=== PATIENT | male | born 1960 | race Caucasian/White ===

== ENCOUNTER → 2018-06-28 10:43 | Outpatient (CLI) | payer MEDICARE, BC ==
[~2018-06-28 10:43] MED LIST: CARAFATE1 G PO; PROTONIX40 MG PO; SYNTHROID75 MCG PO
== END | disposition home or self-care (01) ==
LOC: D.US 10:43 → EDSEX 10:43 → D.US 11:00
DX: R19.4 Change in bowel habit (principal)

== ENCOUNTER 2018-07-05 12:51 | Observation (INO) | payer MEDICARE ==
[~2018-07-05] VITALS: Ht 185.4 cm; Wt 93.0 kg
--- NOTE | ~2018-07-05 | HEMODYNAMI ---
PATIENT:JACLYN DAMON MEDICAL RECORD: [id number] : 60 LOCATION:[facility] D.2119 ADMISSION DATE: 07/05/18 Generatedon:07/06/201813:58 Patient name: JACLYN DAMON Patient #: [id number] SSN: DO B: 1960 Date of study: 07/06/2018 Page: Of Hemodynamic Procedure Report Patient Data Patient Demographics Procedure consent was obtained First Name: JACLYN Gender: Male Last Name: MARISOL : 1960 [facility] Initial: JOSE Age: 58 year(s) Patient #: [id number] Race: Unknown Additional ID: [id number] Contact details [address]: [address] [place] [address] State: [place] City: [place] Zip code: [address] Past Medical History Allergies: No known allergies Admission Admission Data Admission Date: 07/05/2018 Admission Time: 16:07 Room #: D.2119 Lab Results Lab Result Date: 07/06/2018 Lab Result Time: 0:00 Biochemistry Name Units Result Min Max BUN mg/dl 21 --(----)-* 7 18 Creatinine mg/dl 1.1 --(--*-)-- 0.6 1.3 CBC Name Units Result Min Max Hemoglobin g/dl 12.4 *-(----)-- 13.5 17.5 Procedure Procedure Types Cath Procedure Diagnostic Procedure C [facility] w/Coronaries Procedure Description Procedure Date Procedure Date: 07/06/2018 Procedure Start Time: 13:44 Procedure End Time: 13:51 Procedure Staff Name Function German Conteh MD Performing Physician Etta Delong RT Monitor Jaya Dubois RN Nurse Raquel Abreu RT Scrub Procedure Data Cath Procedure Fluoroscopy Diagnostic fluoroscopy Total fluoroscopy dose: 222 dose: 222 mGy mGy Contrast Material Contrast Material Type Amount (ml) Isovue 300 50 Entry Location Entry Primary Successful Side Size Upsize Upsize Entry Closure Succes sful Closure Location (Fr) 1 (Fr) 2 (Fr) Remarks Device Remarks Femoral Right 5 Fr Exoseal artery Estimated blood loss: 10 ml Diagnostic catheters Device Type Used For End Catheter Placement MULTIPACK JL 4.0 5Fr Procedure catheter MULTIPACK 3DRC 5Fr Procedure catheter MULTIPACK Pigtail 5 Fr Procedure catheter Procedure Complications No complications Procedure Medications Medication Administration Route Dosage Oxygen etCO2 Nasal cannula 2 l/min Lidocaine 2% added to field 20 Heparin Flush Bag added to field 2 bags (1000units/500ml NS) 0.9% NaCl I.V. 100 ml/hr Versed I.V. 2 mg Fentanyl I.V. 100 mcg Versed I.V. 1 mg Fentanyl I.V. 50 mcg Hemodynamics Rest HGB: 12.4 (g/dl) Heart Rate: 68 (bpm) Pressure Samples Time Site Value (mmHg) Purpose Heart Use Rate(bpm) 13:48 LV 117/-14,11 Snapshot 71 13:48 LV 116/-14,9 Snapshot 70 Gradients Valve Time Site Site Mean SEP/DFP Peak To Heart Use 1 2 (mmHg) (sec/min) Peak Rate (mmHg) (bpm) Aortic 13:49 LV AO 69 Snapshots Pre Cath Intra NCS Post Cath Vital Signs Time Heart Resp SPO2 etCO2 NIBP Rhythm Pain Sedation Rate (ipm) (%) (mmHg) (mmHg) Status Level (bpm) 13:32:55 67 16 98 39.8 128/75(95) NSR 0 (11) 10(A) , No pain 13:37:09 65 18 100 42.9 121/65(84) NSR 0 (11) 10(A) , No pain 13:41:21 67 15 98 0 116/63(81) NSR 0 (11) 10(A) , No pain 13:45:28 63 14 97 0 110/68(82) NSR 0 (11) 9(A) , No pain 13:49:34 74 16 98 43.7 117/66(91) NSR 0 (11) 9(A) , No pain 13:54:36 68 15 98 36.9 116/65(85) NSR 0 (11) 10(A) , No pain Medications Time Medication Route Dose Verified Delivered Reason Notes Eff ectiveness by by 13:34:20 Oxygen etCO2 2 German Jaya used for Nasal l/min St Antwan Dubois RN procedure cannula 13:34:26 Lidocaine 2% added 20ml German Porter for local to vial [facility] Antwan Conteh anesthetic field MD [place] 13:34:32 Heparin Flush added 2 German Porter used for Bag to bags St Antwan Conteh procedure (1000units/500ml field MD [place] NS) 13:34:40 0.9% NaCl I.V. 100 [place] Per ml/hr St Antwan Dubois RN physician 13:43:27 Versed I.V. [address] [place] [address] [facility] Antwan Dubois RN sedation 13:43:32 Fentanyl I.V. 100 [place] [facility] [place]twan Dubois RN sedation 13:47:12 Versed I.V. [address] [place] [address] Antwan Dubois RN sedation 13:47:16 Fentanyl I.V. 50 [place] [facility] [place] Antwan Dubois RN sedation Procedure Log Time Note 13:13:27 Time tracking: Call back (After hours or weekends) 13:13:30 Plan of Care:Hemodynamics will remain stable., Cardiac rhythm will remain stable., Comfort level will be maintained., Respiratory function will remain adequate., Patient/ family verbilizes understanding of procedure., Procedure tolerated without complication., Recovers from procedure without complications.. 13:15:02 Jaya Dubois RN sent for patient. Start room use. 13:26:12 Patient received from PCU to [facility] 2 Alert and oriented. Tansferred to table in Supine position. 13:26:13 Warm blankets applied, and juan diego hugger turned on for patient comfort. 13:26:14 Correct patient and procedure confirmed by team. 13:26:15 Signed procedure consent form obtained from patient. 13:26:16 ECG and BP/O2 sat monitors applied to patient. 13:26:17 Full Disclosure recording started 13:31:44 Vital chart was started 13:34:20 Oxygen 2 l/min etCO2 Nasal cannula was administered by Jaya Dubois RN; used for procedure; 13:34:26 Lidocaine 2% 20ml vial added to field was administered by German Conteh MD; for local anesthetic; 13:34:32 Heparin Flush Bag (1000units/500ml NS) 2 bags added to field was administered by German Conteh MD; used for procedure; 13:34:40 0.9% NaCl 100 ml/hr I.V. was administered by Buffie Dubois RN; Per physician; 13:34:50 Baseline sample Acquired. 13:34:55 Rhythm: sinus rhythm 13:35:03 H&P Date Dictated: 07/05/2018 Within 30 days and on chart.. 13:35:12 Pre-procedure instructions explained to patient. 13:35:14 Family in waiting room. 13:35:18 Patient NPO since Midnight. 13:35:28 Patient allergic to No known allergies 13:35:30 Is the patient allergic to Iodine/contrast media? No. 13:35:36 Was the patient premedicated? Yes 13:35:39 Is patient on blood thinner?No 13:35:41 Patient diabetic? No. 13:35:46 Snore? Yes 13:35:48 Sleep apnea? No 13:35:53 Dentures? No ? 13:36:06 IV patent on arrival in left forearm with 0.9% NaCl at [facility]. 13:36:10 Lab results completed and on chart. 13:36:14 Right groin area was prepped with chlora-prep and draped in sterile fashion 13:36:16 Alarms reviewed by R. N. 13:36:16 Sharps counted by scrub and verified by R.N. 13:37:30 Physician paged 13:42:29 Lab Result : BUN 21 mg/dl 13:42:29 Lab Result : Creatinine 1.1 mg/dl 13:42:29 Lab Result : Hemoglobin 12.4 g/dl 13:42:33 Physician arrived 13:42:34 --------ALL STOP TIME OUT------ 13:42:35 Final Timeout: patient, procedure, and site verified with staff and physician. All members of the team are in agreement. 13:42:39 Right groin site verified by team. 13:42:45 Fire Safety Assessment: A--An alcohol-based skin anteseptic being used preoperatively., C--Open oxygen or nitrous oxide is being used. 13:42:49 Physical assessment completed. ASA score P 2 - A patient with mild systemic disease as per German Conteh MD. 13:42:54 Sedation plan: IV Moderate Sedation Medication:Versed, Fentanyl 13:42:59 Use device set Femoral Dx 13:43:27 Versed 2 mg I.V. was administered by Jaya Dubois RN; for sedation; 13:43:32 Fentanyl 100 mcg I.V. was administered by Jaya Dubois RN; for sedation; 13:43:54 Zero performed for pressure channel P1 13:44:01 Procedure started. 13:44:19 Local anesthetic to right femoral artery with Lidocaine 2% by German Conteh MD.INITIAL ACCESS ONLY 13:44:28 A 5 Fr sheath was inserted into the Right Femoral artery 13:44:59 ACIST Syringe (10099) opened to sterile field. 13:44:59 Bag Decanter (2002S) opened to sterile field. 13:45:00 Medline Cath Pack ([id number]) opened to sterile field. 13:45:01 DIAGNOSTIC WIRE .035 260cm J wire (337287) opened to sterile field. 13:45:01 ACIST Hand Control (80269) opened to sterile field. 13:45:02 ACIST Manifold (28636) opened to sterile field. 13:45:03 DIAGNOSTIC Multipack 5Fr catheter set (ML7746) opened to sterile field. 13:45:03 Tegaderm 4 x 4 (1626W) opened to sterile field. 13:45:05 SHEATH 5FR [place] (GON269) opened to sterile field. 13:45:11 A MULTIPACK JL 4.0 5Fr catheter was advanced over the wire and used for Procedure. 13:45:15 LCA angiography performed. 13:46:21 Catheter removed. 13:46:30 A MULTIPACK 3DRC 5Fr catheter was advanced over the wire and used for Procedure. 13:47:08 RCA angiography performed. 13:47:10 Catheter removed. 13:47:12 Versed 1 mg I.V. was administered by Jaya Dubois RN; for sedation; 13:47:16 Fentanyl 50 mcg I.V. was administered by Jaya Dubois RN; for sedation; 13:47:17 A MULTIPACK Pigtail 5 Fr catheter was advanced over the wire and used for Procedure. 13:47:20 EXOSEAL 5Fr (EX500) opened to sterile field. 13:47:28 LV angiography performed. 13:49:10 EF : 55 % 13:49:49 Catheter removed. 13:50:05 Sheath removed intact; hemostasis achieved with Exoseal to the Right Femoral artery. 13:50:07 Procedure ended.(Physican Out) 13:50:22 Fluoroscopy dose: 222 mGy 13:50:22 Flurop Dose total: 222 13:50:25 Contrast amount:Isovue 300 50ml. 13:50:29 Sharps counted by scrub and verified by R.N. 13:50:31 Insertion/operative site no bleeding no hematoma. 13:50:35 Post right femoral artery:stable 13:50:38 Post Procedure Pulses reassessed and unchanged 13:50:43 Post procedure rhythm: unchanged. 13:50:46 Estimated blood loss: 10 ml 13:50:49 Post procedure instruction explained to patient.Patient verbalizes understanding. 13:50:58 Procedure and supply charges have been captured, reviewed, submitted and are correct. 13:51:16 Procedure Complication : No complications 13:51:28 Vital chart was stopped 13:51:33 See physician's report for complete and final results. 13:51:39 Report given to [facility] II. 13:51:43 Patient transfered to [facility] with Bed. 13:51:45 Procedure ended. 13:51:45 Full Disclosure recording stopped 13:51:48 End room use (Document Last) Device Usage Item Name Manufacture Quantity Catalog Hospital Part Current Minimal L ot# / Number Charge Number Stock Stock Serial# Code ACIST Acist 1 66319 139297 062941 236446 20 Syringe Medical (58149) Systems Inc Bag Microtek 1 2001S 860941 97023 227775 5 Decanter Medical Inc. () Medline Medline 1 [id number] 240720 88013 231156 5 Cath Pack ([id number]) DIAGNOSTIC St Chuck 1 869241 250446 929117 990248 30 WIRE .035 260cm J wire (412800) ACIST Hand Acist 1 30817 371585 506559 407152 5 Control Medical (33932) Systems Inc ACIST Acist 1 14039 800981 491015 687699 5 Manifold Medical (76747) Systems Inc DIAGNOSTIC Cardinal 1 HI6447 570262 34476 296715 30 Multipack Health 5Fr catheter set (UP7148) Tegaderm 4 3M 1 1626W 573581 419617 940095 5 x 4 (1626W) SHEATH 5FR Terumo 1 JBD736 397795 761977 275591 5 [place] (LQV571) MULTIPACK Cardinal 1 167275 5 JL 4.0 5Fr Health catheter MULTIPACK Cardinal 1 675325 5 3DRC 5Fr Health catheter MULTIPACK Cardinal 1 752652 5 Pigtail 5 Health Fr catheter EXOSEAL 5Fr Cardinal 1 EX500 762460 916017 429438 10 (EX500) Health Signature Audit Snyder Stage Time Signature Unsigned Intra-Procedure 07/06/2018 Etta Delong 1:58:29 PM RT(R) Signatures Monitor : Etta Delong Signature : RT Date : Time : [id number] [place] [address]
[2018-07-05 13:52] LABS: HEMATOCRIT 40.7 % (42.0-54.0); HEMOGLOBIN 13.9 g/dL (13.5-17.5); LYMPHOCYTES 26.5 % (15-50); MCH 32.5 pg (26.0-34.0); MCHC 34.2 g/dL (31.0-37.0); MCV 95.1 fL (80.0-100.0); MEAN PLATELET VOLUME 10.3 fL (7.4-10.4); NEUTROPHILS 59.8 % (40-80); PLATELET COUNT 197 10x3/uL (130-400); RBC 4.28 10x6/uL (4.20-6.10); RDW 13.7 % (11.5-14.5); WBC 4.3 10x3/uL (4.8-10.8)
[2018-07-05 13:54] LABS: INR 1.25 (0.85-1.17); PROTIME 15.2 SECONDS (11.6-15.0)
[2018-07-05 13:55] LABS: ALBUMIN 3.9 g/dL (3.4-5.0); ALKALINE PHOSPHATASE 48 U/L (46-116); ALT (SGPT) 29 U/L (10-68); BILIRUBIN - TOTAL 0.27 mg/dL (0.2-1.3); CALC OSMOLALITY 282 mosm/kg (275-300); CALCIUM 8.8 mg/dL (8.5-10.1); CARBON DIOXIDE 27.4 mmol/L (21.0-32.0); CHLORIDE - SERUM 104 mmol/L (98-107); CREATININE - SERUM 0.9 mg/dL (0.6-1.3); GLUCOSE 90 mg/dL (74-106); POTASSIUM - SERUM 4.3 mmol/L (3.5-5.1); PROTEIN - SERUM 7.4 g/dL (6.4-8.2); SODIUM 141 mmol/L (136-145); UREA NITROGEN 17 mg/dL (7-18); eGFR NON AFRICAN AMERICAN > 90 mL/min (90-120)
[2018-07-05 14:05] LABS: CKMB 1.4 U/L (0.0-3.6); CREATINE KINASE 155 UL (21-232); MAGNESIUM - SERUM 2.4 mg/dL (1.8-2.4); TROPONIN-I < 0.017 ng/mL (0.000-0.060)
[2018-07-05 16:39] LABS: CREATINE KINASE 128 UL (21-232)
[2018-07-05 16:42] LABS: TROPONIN-I < 0.017 ng/mL (0.000-0.060)
--- NOTE | 2018-07-05 17:41 | NUR ---
PT ARRIVED TO FLOOR VIA WC. PT IS ALERT AND ORIENTED AND UP ADLIB. UNIT ORIENTATION GIVEN TO PT. TELEMETRY PLACED ON PT AND HE IS RUNNING 80 NORMAL SINUS RHYTHM. LEFT AC 20G IV SL. ROOM AIR. MED REC AND ADMISSION HX DONE. RN TO DO ADMISSION ASSESSMENT. BED LOW. CL IN REACH.
[2018-07-05] MEDS ORDERED: SYNTHROID75 MCG PO (17:46)
[2018-07-05 18:37] VITALS: BP 153/101
--- NOTE | 2018-07-05 19:34 | NUR ---
PT IN BED. EDUCATED ON HEART CATH PROCEDURE. PT DENIES NEEDS AT THIS TIME.
[2018-07-05 20:00] VITALS: BP 116/71
[2018-07-05 21:53] LABS: CREATINE KINASE 112 UL (21-232); TROPONIN-I 0.022 ng/mL (0.000-0.060)
[2018-07-06 02:32] LABS: BASOPHILS 0.3 % (0-2); EOSINOPHILS 2.4 % (0-7); HEMATOCRIT 37.4 % (42.0-54.0); HEMOGLOBIN 12.4 g/dL (13.5-17.5); IMMATURE GRANULOCYTES 0.2 % (0-5); LYMPHOCYTES 28.8 % (15-50); MCH 31.6 pg (26.0-34.0); MCHC 33.2 g/dL (31.0-37.0); MCV 95.4 fL (80.0-100.0); MEAN PLATELET VOLUME 10.6 fL (7.4-10.4); NEUTROPHILS 56.3 % (40-80); PLATELET COUNT 195 10x3/uL (130-400); RBC 3.92 10x6/uL (4.20-6.10); RDW 14.1 % (11.5-14.5)
[2018-07-06 02:33] LABS: WBC 6.3 10x3/uL (4.8-10.8)
[2018-07-06 03:03] LABS: ALBUMIN 3.2 g/dL (3.4-5.0); ALKALINE PHOSPHATASE 37 U/L (46-116); ALT (SGPT) 24 U/L (10-68); BILIRUBIN - TOTAL 0.24 mg/dL (0.2-1.3); CALC OSMOLALITY 285 mosm/kg (275-300); CALCIUM 8.3 mg/dL (8.5-10.1); CARBON DIOXIDE 26.9 mmol/L (21.0-32.0); CHLORIDE - SERUM 106 mmol/L (98-107); CKMB 0.7 U/L (0.0-3.6); CREATINE KINASE 98 UL (21-232); CREATININE - SERUM 1.1 mg/dL (0.6-1.3); GLUCOSE 101 mg/dL (74-106); POTASSIUM - SERUM 4.1 mmol/L (3.5-5.1); PROTEIN - SERUM 6.1 g/dL (6.4-8.2); SODIUM 142 mmol/L (136-145); TROPONIN-I 0.025 ng/mL (0.000-0.060); UREA NITROGEN 21 mg/dL (7-18); eGFR NON AFRICAN AMERICAN 73 mL/min (90-120)
[2018-07-06 04:00] VITALS: BP 109/68
--- NOTE | 2018-07-06 05:46 | NUR ---
RESTING IN BED WITH EYES CLOSED. NO S/S OF DISTRESS OBSERVED, WILL CONT. POC.
--- NOTE | 2018-07-06 07:05 | NUR ---
RECEIVED REPORT. ASSUMED CARE OF PATIENT. CALL LIGHT WITHIN REACH. RESTING IN BED WITH EYES OPEN. SR,63 ON TELEMETRY. NO DISTRESS.
[2018-07-06 08:46] VITALS: BP 125/74
--- NOTE | 2018-07-06 08:59 | NUR ---
CONSENTS SIGNED AND ON CHART FOR HEART CATH TODAY
--- NOTE | 2018-07-06 11:18 | NUR ---
RESTING IN BED. PATIENT AT BEDSIDE. NO DISTRESS. AWAITING ON HEART CATH.
--- NOTE | 2018-07-06 12:48 | NUR ---
PREOP MEDS ADMINISTERED DISCUSSED WITH PETROS. MADELINAILS UP FOR SAFETY. NO DISTRESS. PATIENT URINATED PRIOR TO PREOP MEDICAION ADMINISTRATION. CALL LIGHT WITHIN REACH.
--- NOTE | 2018-07-06 13:23 | NUR ---
PATIENT LEFT VIA BED FOR UNIX SYSTEM ADMINISTRATOR AT THIS TIME. NO DISTRESS.
[2018-07-06 13:35] VITALS: Ht 185.4 cm; Wt 93.0 kg
--- NOTE | 2018-07-06 14:11 | NUR ---
RECEIVED BACK TO ROOM WITH DRESSING, C/D/I TO RIGHT GROIN. TO LAY FLAT X 2 HOURS. CALL LIGHT IN USE.
[2018-07-06 14:26] LABS: % SATURATION 34 % (15-55); IRON 79 ug/dl (35-150); TOTAL IRON BIND CAPACITY 228 ug/dl (260-445); UNSAT IRON BIND CAPACITY 149 ug/dl (150-375)
--- NOTE | 2018-07-06 14:28 | NUR ---
RESTING WELL. PERIPHERAL PULSES PATENT. NO DISTRESS. NO S/S HEMATOMA FORMATION. CALL LIGHT WITHIN REACH.
[2018-07-06] MEDS ORDERED: CARAFATE1 G PO (16:21)
[2018-07-06] MEDS ORDERED: PROTONIX40 MG PO (16:21)
[2018-07-06 16:25] VITALS: BP 119/73
[2018-07-06 17:22] LABS: APPEARANCE CLOUDY (CLEAR); BILIRUBIN NEGATIVE (NEGATIVE); COLOR YELLOW (YELLOW); GLUCOSE NEGATIVE (NEGATIVE); KETONE NEGATIVE (NEGATIVE); NITRITE NEGATIVE (NEGATIVE); PROTEIN TRACE mg/dL (NEGATIVE); UROBILINOGEN NORMAL (NORMAL)
[2018-07-06 17:23] LABS: UDS - AMPHET NEGATIVE QUAL (NEGATIVE); UDS - BARB NEGATIVE QUAL (NEGATIVE); UDS - BENZO POSITIVE QUAL (NEGATIVE); UDS - COCAINE NEGATIVE QUAL (NEGATIVE); UDS - OPIATE POSITIVE QUAL (NEGATIVE); UDS - PCP NEGATIVE QUAL (NEGATIVE); UDS - THC NEGATIVE QUAL (NEGATIVE); WHITE CELLS - URINE 25-50 /hpf (0-5)
[2018-07-06 17:24] LABS: BACTERIA MANY /hpf (NONE SEEN); EPITHELIAL CELLS OCC /hpf (0-5)
--- NOTE | 2018-07-06 17:39 | NUR ---
UA SENT AFTER PATIENT RECEIVED MEDS FROM HAVING HEART CATH.
--- NOTE | 2018-07-06 17:42 | NUR ---
DISCHARGE INSTRUCTIONS PROVIDED TO PATIENT AND HIS . PATIENT VERBALIZED UNDERSTANDING OF ALL INSTRUCTIONS PROVIDED. 20 GAUGE IV REMOVED FROM LEFT AC. CATHETER TIP INTACT. NO BLEEDING FROM SITE. 2X2 GAUZE APPLIED AND SECURED WITH BANDAID. PATIENT IS EATING HIS DINNER AND WILL CALL WHEN HE IS DRESSED AND READY TO BE TAKEN DOWNSTAIRS.
--- NOTE | 2018-07-06 17:56 | NUR ---
PATIENT LEFT UNIT VIA WHEELCHAIR. PATIENT DISCHARGED TO HOME. PATIENT LEFT UNIT WITH ALL PERSONAL BELONGINGS. NO DISTRESS UPON LEAVING UNIT.
--- NOTE | 2018-07-08 10:12 | MORECARE ---
CASE MANAGEMENT DISCHARGE SUMMARY PATIENT: JACLYN DAMON UNIT: [id number] ADM DATE: 07/05/18 AGE: 58 : 60 SEX: M ROOM/BED: D.2119 AUTHOR: MILTON MENDOZA PHYSICIAN: REFERRING PHYSICIAN: DARBY GREGORIO MD DATE OF SERVICE: 07/08/18 Discharge Plan Patient Name: [facility]ACLYN DAMON [facility] 1960 Planned Disposition: Home Anticipated Discharge Date: 07/06/18 Discharge Date: 07/06/2018 Expected LOS: 1 Initial Reviewer: [email or web address] Initial Review Date: 07/08/2018 Generated: 07/08/18 11:12 am Coverage Notice Reviewer: [email or web address] Jason Tiwari Notice Issued Date-Time: 07/05/2018 16:06 Notice Type: Medicare Outpatient Observation Notice Notice Delivered To: Patient Relationship to 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
[2018-07-09 12:17] LABS: FOLATE (FOLIC ACID) - SERUM >20.0 ng/mL (>3.0)
--- NOTE | 2018-07-12 12:22 | CN ---
PATIENT NAME:JACLYN DAMON MEDICAL RECORD: [id number] : 60 LOCATION:D. D.2119 ADMIT DATE: 07/05/18 ACCOUNT: [id number] CONSULTING PHYSICIAN: CHEMA BOSTON MD REFERRING PHYSICIAN: DARBY GREGORIO MD DATE OF CONSULTATION: 07/06/2018 HISTORY OF PRESENT ILLNESS: A 58-year-old gentleman, no known history of coronary artery disease, has a history of autonomic hyperreflexia and hypothyroidism, on replacement. Episode of chest pain and near syncope yesterday. This was while walking at [employer]. Has been feeling well previously to this. Did take 2 doses of antihistamine the day prior to. Accompanied by diaphoresis and pallor by 's report. We are asked to see him concerning his cardiovascular status. PAST MEDICAL HISTORY: Includes; 1. History of autonomic hyperreflexia. 2. Hypothyroidism, on replacement. ALLERGIES: None known. MEDICATIONS: Include Synthroid 75 mcg every day. SOCIAL HISTORY: Smokes about a pack a day. Social drinker. Does try to exercise 4-5 days a week. REVIEW OF SYSTEMS: The patient reports easy bruising but reports no swollen glands. The patient reports no fever, no night sweats, no significant weight gain, no significant weight loss. No significant exercise tolerance. The patient reports no dry eyes, no irritation, no vision change. Patient reports no difficulty hearing and no ear pain. Patient reports no frequent nose bleeds or nose and sinus problems. Patient reports on arm pain on exertion. No shortness of breath while lying down. No history of heart murmur. Patient reports no cough, no wheezing or coughing up blood. Patient reports no abdominal pain, no vomiting. Normal appetite. No diarrhea and not vomiting blood. No nausea and no constipation. Patient reports no incontinence. No difficulty urinating. No hematuria. No increased frequency. Patient reports no muscle aches. No weakness, no arthralgias, no back pain. No swelling of the extremities. Patient reports no abnormal mole, no jaundice, no rashes. Reports no loss of consciousness. No weakness and no numbness. No seizures, dizziness, or headaches. The patient reports no depression, no sleep disturbance, feeling safe in a relationship and no alcohol abuse. Patient reports on fatigue. Reports no runny nose or sinus pressure. No itching, no hives, and no frequent sneezing. PHYSICAL EXAMINATION: GENERAL: Pleasant gentleman, in no acute distress, appears stated age. VITAL SIGNS: Blood pressure 125/74, pulse 71 and regular. HEENT: Normocephalic, atraumatic. NECK: No JVD or bruit. HEART: Regular. LUNGS: Good air excursion. ABDOMEN: Soft, nontender. EXTREMITIES: Pulses 2+. There is no edema. NEUROLOGIC: Intact. CONSULT REPORT [id number] JACLYN DAMON DIAGNOSTIC DATA: ECG without acute change. IMPRESSION: Acute coronary syndrome. Plan for diagnostic angiography. Intervention based on the above. TRANSINT:[id number] Voice Confirmation ID: [id number] DOCUMENT ID: [id number] CHEMA BOSTON MD at 1222 CC: [id number] DICTATION DATE: 07/06/18 0853 [place] PROGRAM COORDINATOR: 07/06/18 1354 DIS IN 07/06/18 [address] [place] [address]
== END 2018-07-06 18:00 | disposition home or self-care (01) ==
LOC: D.ER 12:51 → D.EDHOLD 16:07 → OBSVTIME 16:08 → D.M2 16:09
PROVIDERS: Family Medicine; ADMIT Internal Medicine Nephrology
DX: R07.9 Chest pain, unspecified (principal); K21.9 Gastro-esophageal reflux disease without esophagitis; K44.9 Diaphragmatic hernia without obstruction or gangrene; D50.9 Iron deficiency anemia, unspecified; N17.9 Acute kidney failure, unspecified; I10 Essential (primary) hypertension; F41.9 Anxiety disorder, unspecified; G40.909 Epilepsy, unspecified, not intractable, without status epilepticus; F10.10 Alcohol abuse, uncomplicated; F17.213 Nicotine dependence, cigarettes, with withdrawal; E03.9 Hypothyroidism, unspecified

== ENCOUNTER 2020-11-02 18:00 | Inpatient (IN) | payer MEDICARE ==
[~2020-11-02] VITALS: Ht 185.4 cm; Wt 84.8 kg
[2020-11-02 19:08] VITALS: BP 133/73
[2020-11-02 19:32] LABS: BASOPHILS 0.2 % (0-2); EOSINOPHILS 0 % (0-7); HEMATOCRIT 41.9 % (42.0-54.0); HEMOGLOBIN 13.8 g/dL (13.5-17.5); LYMPHOCYTES 8.6 % (15-50); MCH 31.3 pg (26.0-34.0); MCV 94.8 fL (80.0-100.0); MEAN PLATELET VOLUME 8.3 fL (7.4-10.4); MONOCYTES 7.4 % (2-11); NEUTROPHILS 83.8 % (40-80); RBC 4.42 10x6/uL (4.20-6.10); WBC 14.6 10x3/uL (4.8-10.8)
[2020-11-02 19:38] LABS: PLATELET COUNT 241 10x3/uL (130-400)
[2020-11-02 19:41] LABS: CALC OSMOLALITY 264 mosm/kg (275-300); CALCIUM 8.7 mg/dL (8.5-10.1); CARBON DIOXIDE 27.7 mmol/L (21.0-32.0); CHLORIDE - SERUM 96 mmol/L (98-107); CREATININE - SERUM 0.9 mg/dL (0.6-1.3); GLUCOSE 123 mg/dL (74-106); POTASSIUM - SERUM 4.7 mmol/L (3.5-5.1); SODIUM 132 mmol/L (136-145); UREA NITROGEN 10 mg/dL (7-18); eGFR NON AFRICAN AMERICAN > 90 mL/min (90-120)
[2020-11-02 19:47] LABS: ALKALINE PHOSPHATASE 53 U/L (30-120); ALT (SGPT) 23 U/L (10-68); AMYLASE - SERUM 32 U/L (25-115); BILIRUBIN - TOTAL 0.66 mg/dL (0.2-1.3); PROTEIN - SERUM 7.7 g/dL (6.4-8.2)
[2020-11-02 19:48] LABS: LIPASE 45 U/L (73-393)
[2020-11-02 20:08] VITALS: BP 115/51
[2020-11-02 21:08] VITALS: BP 138/78
[2020-11-02 22:08] VITALS: BP 133/84
[2020-11-02 23:36] VITALS: BP 126/64; BMI 24.7
[2020-11-03 00:18] LABS: BILIRUBIN NEGATIVE (NEGATIVE); KETONE NEGATIVE (NEGATIVE); NITRITE NEGATIVE (NEGATIVE); UROBILINOGEN NORMAL mg/dL (< 2)
[2020-11-03 00:20] LABS: BACTERIA FEW HPF (NONE SEEN); SQUAMOUS EPITHELIAL 0-5 HPF (0-4); WHITE CELLS - URINE 0-5 HPF (0-1)
[2020-11-03 04:00] VITALS: BP 115/59
[2020-11-03 05:45] LABS: UDS - AMPHET NEGATIVE QUAL (NEGATIVE); UDS - BARB NEGATIVE QUAL (NEGATIVE); UDS - BENZO NEGATIVE QUAL (NEGATIVE); UDS - COCAINE NEGATIVE QUAL (NEGATIVE); UDS - OPIATE POSITIVE QUAL (NEGATIVE); UDS - PCP NEGATIVE QUAL (NEGATIVE); UDS - THC NEGATIVE QUAL (NEGATIVE)
[2020-11-03 08:10] VITALS: BP 112/65
--- NOTE | 2020-11-03 08:22 | NUR ---
IN BED WITH EYES CLOSED, AROUSES EASILY TO VOICE. DENIES ANY NEEDS. BED IN LOWEST POSITION, BED RAILS X2, CALL LIGHT WITHIN REACH. WILL CONTINUE POC. ASSESSMENT PERFORMED AT THIS TIME.
[2020-11-03 08:25] LABS: INR 1.62 (0.85-1.17); PROTIME 17.8 SECONDS (11.6-15.0)
[2020-11-03 08:26] LABS: APTT 38.3 SECONDS (22.8-39.4)
[2020-11-03 08:28] LABS: BASOPHILS 0.1 % (0-2); EOSINOPHILS 0 % (0-7); HEMATOCRIT 37.4 % (42.0-54.0); HEMOGLOBIN 12.8 g/dL (13.5-17.5); LYMPHOCYTES 4.9 % (15-50); MCH 32.6 pg (26.0-34.0); MCHC 34.4 g/dL (31.0-37.0); MCV 94.8 fL (80.0-100.0); MEAN PLATELET VOLUME 8.6 fL (7.4-10.4); MONOCYTES 4.3 % (2-11); NEUTROPHILS 90.7 % (40-80); PLATELET COUNT 207 10x3/uL (130-400); RBC 3.94 10x6/uL (4.20-6.10); WBC 14.5 10x3/uL (4.8-10.8)
[2020-11-03 08:48] LABS: ALBUMIN 3.4 g/dL (3.4-5.0); ALKALINE PHOSPHATASE 49 U/L (30-120); ALT (SGPT) 21 U/L (10-68); BILIRUBIN - TOTAL 0.54 mg/dL (0.2-1.3); CALC OSMOLALITY 265 mosm/kg (275-300); CALCIUM 8.4 mg/dL (8.5-10.1); CARBON DIOXIDE 25.8 mmol/L (21.0-32.0); CHLORIDE - SERUM 101 mmol/L (98-107); CKMB 1.7 U/L (0.0-3.6); CREATINE KINASE 218 UL (21-232); CREATININE - SERUM 0.8 mg/dL (0.6-1.3); GLUCOSE 82 mg/dL (74-106); MAGNESIUM - SERUM 2.2 mg/dL (1.8-2.4); POTASSIUM - SERUM 4.3 mmol/L (3.5-5.1); PROTEIN - SERUM 6.8 g/dL (6.4-8.2); SODIUM 134 mmol/L (136-145); TROPONIN-I < 0.017 ng/mL (0.000-0.060); UREA NITROGEN 10 mg/dL (7-18); eGFR NON AFRICAN AMERICAN > 90 mL/min (90-120)
--- NOTE | 2020-11-03 10:35 | NUR ---
HUNG MVI BAG. PRN MORPHINE FOR PAIN GIVEN. BLADDER DRAINED. RESTING COMFORTABLY IN BED. DENIES FURTHER NEEDS AT THIS TIME. WILL CONTINUE POC.
[2020-11-03 11:31] VITALS: BP 133/64
--- NOTE | 2020-11-03 12:48 | NUR ---
I have reviewed this patient and I concur with the Shift Assessment completed by the Licensed Practical Nurse today this shift.
--- NOTE | 2020-11-03 14:00 | NUR ---
CONSENTS FOR EGD AND COLONOSCOPY SIGNED FOR PROCEDURE TOMORROW. IKE STARTED, SUPPOSITORY PLACED. RESTING COMFORTABLY IN BED, DENIES ANY NEEDS AT THIS TIME. WILL CONTINUE POC.
[2020-11-03 15:01] VITALS: Ht 185.4 cm; Wt 84.8 kg
[2020-11-03 15:25] VITALS: BP 126/68
--- NOTE | 2020-11-03 17:08 | NUR ---
PRN MORPHINE FOR PAIN. HUNG IV FLUIDS. REPORTS VOMITING UP GOLYTLEY AND HAVING LITTLE TO NO BOWEL MOVEMENTS EVEN AFTER SUPPOSITORY. WILL CONTACT DR. JEFFERY IN BED. FAMILY AT BEDSIDE. DENIES ANY NEEDS AT THIS TIME. WILL CONTINUE POC.
[2020-11-03 20:00] VITALS: BP 140/88
--- NOTE | 2020-11-04 00:55 | NUR ---
PT VOMITING AND CANNOT KEEP GOLYTELY DOWN, MD BARBOSA CONTACTED BISACODYL Q4H ORDER FOR PT. ZOFRAN GIVEN WILL CONT TO MONITOR
--- NOTE | 2020-11-04 03:14 | NUR ---
I have reviewed this patient and I concur with the Shift Assessment completed by the Licensed Practical Nurse today this shift.
[2020-11-04 04:00] VITALS: BP 138/78
--- NOTE | 2020-11-04 06:15 | NUR ---
GI SURGERY INFORMED ABOUT PT STATUS, NO BOWEL MOVEMENT AFTER MED. PT VOMITING OFTEN AND DID NOT KEEP GOLYTE MED; MD BARBOSA WAS CONTACTED AND HE ORDER BISACODYL AND PT WAS NOT ABLE TO KEEP FIRST DOSE IN HIS STOMACH, SECOND DOSE HE WAS ABLE TO MAINTAIN IN STOMACH BUT PT STATES HE IS PASSING GAS NO BM. PER PASCALE MELENDEZ PT NPO EGD MIGHT BE PERFORMED HE WILL INFORM MD BLAS ABOUT SITUATION AND WILL CONTACT AM NURSE LATER IN THE AM.
[2020-11-04 06:25] LABS: BASOPHILS 0.2 % (0-2); EOSINOPHILS 0 % (0-7); HEMATOCRIT 38.9 % (42.0-54.0); HEMOGLOBIN 13.1 g/dL (13.5-17.5); LYMPHOCYTES 5.1 % (15-50); MCH 32.2 pg (26.0-34.0); MCHC 33.8 g/dL (31.0-37.0); MCV 95.2 fL (80.0-100.0); MEAN PLATELET VOLUME 8.3 fL (7.4-10.4); MONOCYTES 5.7 % (2-11); PLATELET COUNT 220 10x3/uL (130-400); RBC 4.08 10x6/uL (4.20-6.10); RDW 14.2 % (11.5-14.5); WBC 14.5 10x3/uL (4.8-10.8)
[2020-11-04 06:50] LABS: ALKALINE PHOSPHATASE 50 U/L (30-120); ALT (SGPT) 20 U/L (10-68); BILIRUBIN - TOTAL 0.44 mg/dL (0.2-1.3); CALCIUM 8.6 mg/dL (8.5-10.1); CARBON DIOXIDE 24.1 mmol/L (21.0-32.0); CHLORIDE - SERUM 100 mmol/L (98-107); CREATININE - SERUM 0.8 mg/dL (0.6-1.3); GLUCOSE 104 mg/dL (74-106); MAGNESIUM - SERUM 2.3 mg/dL (1.8-2.4); POTASSIUM - SERUM 4.5 mmol/L (3.5-5.1); PROTEIN - SERUM 6.9 g/dL (6.4-8.2); SODIUM 133 mmol/L (136-145); eGFR NON AFRICAN AMERICAN > 90 mL/min (90-120)
[2020-11-04 06:51] LABS: CALC OSMOLALITY 265 mosm/kg (275-300); UREA NITROGEN 13 mg/dL (7-18)
[2020-11-04 08:46] VITALS: BP 151/88
[2020-11-04 13:10] VITALS: BP 142/77
--- NOTE | 2020-11-04 13:46 | NUR ---
Nutrition follow-up: NPO for colonsocpy today Labs reviewed Will need nutrition support started within 24 hours if diet unable to begin For short-term nutrition support recommend ProcalAine PPN @ 125 ml/hr RDN will follow-up on pts progress toward nutrition goals in 3-5 days.
[2020-11-04 17:55] VITALS: BP 140/91
--- NOTE | 2020-11-04 18:45 | NUR ---
PATIENT COUGHING AND GAGGING WHEN CAME BACK FROM EGD. GAVE HIM ZOFRAN AND MORPHINE. NOW IN BED RESTING QUEITLY WITH NO PROBLEMS. CALL LIGHT WITHIN REACH.
[2020-11-04 20:00] VITALS: BP 133/87
--- NOTE | 2020-11-05 02:15 | NUR ---
PT REQUEST TYLENOL PM TO SLEEP HAMMER SMITH WAS CONTACTED AND MED APPROVED AND ORDER. WILL CONT TO MONITOR
--- NOTE | 2020-11-05 04:24 | NUR ---
I have reviewed this patient and I concur with the Shift Assessment completed by the Licensed Practical Nurse today this shift.
--- NOTE | 2020-11-05 05:45 | NUR ---
PT REFUSE TO TAKE LEVOTHYROXINE HIS GOT THE MED FOR HIM FROM HOME AND HE TOOK IT ALREADY. PT WAS EXPLAINED THAT HE CANT BRING MEDS FROM HOME AND THAT HE NEEDS TO TAKE MEDS FROM THE HOSPITAL IN THE FUTURE.
[2020-11-05 05:58] LABS: BASOPHILS 0.1 % (0-2); EOSINOPHILS 0.2 % (0-7); HEMATOCRIT 37.4 % (42.0-54.0); HEMOGLOBIN 12.6 g/dL (13.5-17.5); MCHC 33.6 g/dL (31.0-37.0); MCV 95.4 fL (80.0-100.0); MEAN PLATELET VOLUME 8.6 fL (7.4-10.4); MONOCYTES 11.4 % (2-11); NEUTROPHILS 78.3 % (40-80); PLATELET COUNT 238 10x3/uL (130-400); RBC 3.92 10x6/uL (4.20-6.10); RDW 14.2 % (11.5-14.5)
[2020-11-05 06:29] LABS: ALBUMIN 2.6 g/dL (3.4-5.0); ALKALINE PHOSPHATASE 39 U/L (30-120); ALT (SGPT) 19 U/L (10-68); BILIRUBIN - TOTAL 0.47 mg/dL (0.2-1.3); CALC OSMOLALITY 273 mosm/kg (275-300); CALCIUM 8.2 mg/dL (8.5-10.1); CARBON DIOXIDE 26.1 mmol/L (21.0-32.0); CHLORIDE - SERUM 102 mmol/L (98-107); CREATININE - SERUM 0.8 mg/dL (0.6-1.3); GLUCOSE 110 mg/dL (74-106); MAGNESIUM - SERUM 2.4 mg/dL (1.8-2.4); POTASSIUM - SERUM 4.3 mmol/L (3.5-5.1); PROTEIN - SERUM 6.2 g/dL (6.4-8.2); SODIUM 135 mmol/L (136-145); UREA NITROGEN 20 mg/dL (7-18); eGFR NON AFRICAN AMERICAN > 90 mL/min (90-120)
[2020-11-05 06:30] LABS: WBC 8.1 10x3/uL (4.8-10.8)
--- NOTE | 2020-11-05 08:00 | NUR ---
PATIENT IN BED WITH EYES CLOSED RESTING QUIETLY. WANTS PAIN MEDS SOON HE CAN HAVE THEM. CALL LIGHT IN REACH.
[2020-11-05 09:14] VITALS: BP 146/85
--- NOTE | 2020-11-05 10:30 | NUR ---
PATIENT WAITING ON MD TO ROUND TO FIND OUT IF ABLE TO HAVE DIET ORDER. SPOKE WITH DR BLAS EARLIER AND HE SAID HE WOULD ORDER DIET AFTER HE SAW HIM. PATIENT VERBALIZED UNDERSTANDING. NO COMPLAINTS. CALL LIGHT IN REACH.
[2020-11-05 13:24] VITALS: BP 147/87
--- NOTE | 2020-11-05 14:44 | NUR ---
PATIENT IN BED. EYES CLOSED. RESTING QUIETLY. FAMILY AT BEDSIDE. CALL LIGHT IN REACH.
[2020-11-05 18:05] VITALS: BP 136/79
--- NOTE | 2020-11-05 19:30 | NUR ---
PATIENT IN BED WITH IV AND DAIGLE INTACT. NO COMPLAINTS OR SIGNS OF DISTRESS, CALL LIGHT WITHIN REACH.
[2020-11-06] VITALS (10 sets, daily range): BP systolic 127–152; BP diastolic 71–94
[2020-11-06 06:45] LABS: BASOPHILS 0.2 % (0-2); EOSINOPHILS 0.4 % (0-7); HEMATOCRIT 38.2 % (42.0-54.0); HEMOGLOBIN 13.1 g/dL (13.5-17.5); LYMPHOCYTES 8.1 % (15-50); MCH 32.4 pg (26.0-34.0); MCHC 34.3 g/dL (31.0-37.0); MCV 94.6 fL (80.0-100.0); MEAN PLATELET VOLUME 8.2 fL (7.4-10.4); MONOCYTES 17.2 % (2-11); NEUTROPHILS 74.1 % (40-80); PLATELET COUNT 263 10x3/uL (130-400); RBC 4.04 10x6/uL (4.20-6.10); RDW 14.3 % (11.5-14.5)
[2020-11-06 06:50] LABS: WBC 5.7 10x3/uL (4.8-10.8)
[2020-11-06 07:17] LABS: ALBUMIN 2.5 g/dL (3.4-5.0); ALKALINE PHOSPHATASE 40 U/L (30-120); BILIRUBIN - TOTAL 0.45 mg/dL (0.2-1.3); CALC OSMOLALITY 274 mosm/kg (275-300); CALCIUM 7.8 mg/dL (8.5-10.1); CARBON DIOXIDE 25.9 mmol/L (21.0-32.0); CHLORIDE - SERUM 103 mmol/L (98-107); CREATININE - SERUM 0.7 mg/dL (0.6-1.3); GLUCOSE 94 mg/dL (74-106); MAGNESIUM - SERUM 2.1 mg/dL (1.8-2.4); POTASSIUM - SERUM 4.3 mmol/L (3.5-5.1); PROTEIN - SERUM 5.6 g/dL (6.4-8.2); SODIUM 136 mmol/L (136-145); UREA NITROGEN 20 mg/dL (7-18); eGFR NON AFRICAN AMERICAN > 90 mL/min (90-120)
[2020-11-06 07:23] LABS: ALT (SGPT) 14 U/L (10-68)
--- NOTE | 2020-11-06 08:34 | NUR ---
AWAKE AND ALERT. ORIENTED X3. NO C/O AT THIS TIME. LUNGS ARE CLEAR BILATERALLY, NO COUGH NOTED. SKIN IS INTACT WITHOUT REDNESS. BOWEL SOUNDS ARE VERY HYPOACTIVE AT THIS TIME. IV TO RIGHT HAND IS PATENT WITHOUT REDNESS AT INSERTION SITE. DENIES NEEDS.
--- NOTE | 2020-11-06 09:30 | NUR ---
GIVEN AM MEDS WITHOUT DIFFICULTY. REQUESTED AND GIVEN 4MG MORPHINE SLOW IVP FOR C/O ABDOMINAL PAIN LEVEL 9. WILL MONITOR. VISITIOR AT BEDSIDE.
--- NOTE | 2020-11-06 12:30 | NUR ---
OFF UNIT VIA BED FOR SURGERY.
--- NOTE | 2020-11-06 15:13 | NUR ---
ABD BINDER IN PLACE. GARETH DRAIN.
--- NOTE | 2020-11-06 16:04 | NUR ---
RETURNED FROM SURGERY. A/O X3. VSS. GARETH PATENT WITH SEROUS SANGUINESS DRAINAGE NOTED. NG TO RIGHT NARE PATENT. DENIES NEEDS.
--- NOTE | 2020-11-06 17:54 | NUR ---
REQUESTED AND GIVEN 2MG MORPHINE SLOW IVP FOR C/O ABDOMINAL PAIN LEVEL 10. WILL MONITOR.
--- NOTE | 2020-11-06 19:18 | NUR ---
PATIENT RESTING IN BED WITH EYES CLOSED AND NO S/S OF DISTRESS. BED IN LOWEST POSITION AND CALL LIGHT IN REACH.
--- NOTE | 2020-11-06 20:31 | NUR ---
ADMINISTERED MEDS PER ORDERS. PATIENT CELINE WELL. ENCOURAGED TO CALL WITH NEEDS.
[2020-11-07 00:08] VITALS: BP 121/75
[2020-11-07 04:37] VITALS: BP 126/74
[2020-11-07 07:12] LABS: BASOPHILS 0.2 % (0-2); EOSINOPHILS 0.1 % (0-7); HEMATOCRIT 40.3 % (42.0-54.0); HEMOGLOBIN 13.4 g/dL (13.5-17.5); LYMPHOCYTES 8.8 % (15-50); MCH 31.7 pg (26.0-34.0); MCHC 33.1 g/dL (31.0-37.0); MCV 95.9 fL (80.0-100.0); MEAN PLATELET VOLUME 8.4 fL (7.4-10.4); MONOCYTES 11.3 % (2-11); NEUTROPHILS 79.6 % (40-80); PLATELET COUNT 313 10x3/uL (130-400); RBC 4.21 10x6/uL (4.20-6.10); RDW 14.6 % (11.5-14.5)
[2020-11-07 07:23] LABS: WBC 7.6 10x3/uL (4.8-10.8)
[2020-11-07 07:29] LABS: ALBUMIN 1.7 g/dL (3.4-5.0); ALKALINE PHOSPHATASE 29 U/L (30-120); ALT (SGPT) 14 U/L (10-68); BILIRUBIN - TOTAL 0.25 mg/dL (0.2-1.3); CALC OSMOLALITY 279 mosm/kg (275-300); CALCIUM 7.2 mg/dL (8.5-10.1); CARBON DIOXIDE 26.8 mmol/L (21.0-32.0); CHLORIDE - SERUM 107 mmol/L (98-107); CREATININE - SERUM 0.9 mg/dL (0.6-1.3); GLUCOSE 159 mg/dL (74-106); MAGNESIUM - SERUM 2.2 mg/dL (1.8-2.4); POTASSIUM - SERUM 4.6 mmol/L (3.5-5.1); SODIUM 137 mmol/L (136-145); UREA NITROGEN 21 mg/dL (7-18); eGFR NON AFRICAN AMERICAN > 90 mL/min (90-120)
--- NOTE | 2020-11-07 07:49 | NUR ---
AWAKE AND ALERT. ORIENTED X3. C/O ABDOMINAL PAIN THIS AM. TO SOON FOR PRN. WILL MONITOR. LUNGS ARE CLEAR BILATERALLY, NO COUGH NOTED. REPORTED USED IS INSTRUCTED. SKIN IS INTACT WITHOUT REDNESS EXCEPT MID ABDOMINAL INCISION WHICH HAS A DRY INTACT DRESSING IN PLACE. GARETH WITH SEROUS SANGUINESS DRAINAGE. IV TO RIGHT HAND IS PATENT WITHOUT REDNESS AT INSERTION SITE. DAIGLE PATENT WITH CLEAR CHARLENE URINE. DENIES NEEDS.
--- NOTE | 2020-11-07 09:00 | NUR ---
TOOK AM MEDS WITHOUT DIFFICULTY. AT BEDSIDE. DENIES NEEDS.
[2020-11-07 09:11] VITALS: BP 128/72
--- NOTE | 2020-11-07 12:00 | NUR ---
NO CHANGES AT THIS TIME. AT BEDSIDE.
--- NOTE | 2020-11-07 14:15 | NUR ---
REQUESTED AND GIVEN 2MG MORPHINE SLOW IVP FOR C/O ABDOMINAL PAIN LEVEL 9. WILL MONITOR. AT BEDSIDE.
[2020-11-07 16:32] VITALS: BP 135/81
--- NOTE | 2020-11-07 16:43 | NUR ---
REQUESTED AND GIVEN 2MG MORPHINE SLOW IVP FOR C/O ABDOMINAL PAIN LEVEL 8. WILL MONITOR. DISCUSSED NEED TO COMMUNICATE WITH PT RE BALANCE ISSUES AND WORK WITH THEM TO REGAIN BALANCE.
--- NOTE | 2020-11-07 18:19 | NUR ---
NO CHANGES NOTED AT THIS TIME. DENIES NEEDS.
--- NOTE | 2020-11-07 19:44 | NUR ---
PATIENT RESTING IN BED WITH NO S/S OF DISTRESS AND DENIES NEEDS AT THIS TIME. BED IN LOWEST POSITION AND CALL LIGHT IN REACH. ENCOURAGED PATIENT TO CALL WITH NEEDS.
--- NOTE | 2020-11-07 21:05 | NUR ---
ADMINISTERED MEDS PER ORDERS. PATIENT CELINE WELL. ENCOURAGED TO CALL WITH NEEDS.
[2020-11-07 22:06] VITALS: BP 137/78
[2020-11-08 06:49] LABS: BASOPHILS 0.2 % (0-2); EOSINOPHILS 1.8 % (0-7); HEMOGLOBIN 12.2 g/dL (13.5-17.5); MCH 32.3 pg (26.0-34.0); MCV 95.1 fL (80.0-100.0); MEAN PLATELET VOLUME 8.1 fL (7.4-10.4); MONOCYTES 12.2 % (2-11); NEUTROPHILS 74.8 % (40-80); PLATELET COUNT 295 10x3/uL (130-400); RBC 3.79 10x6/uL (4.20-6.10); RDW 14.5 % (11.5-14.5); WBC 7.4 10x3/uL (4.8-10.8)
[2020-11-08 07:13] LABS: ALBUMIN 1.8 g/dL (3.4-5.0); ALKALINE PHOSPHATASE 28 U/L (30-120); ALT (SGPT) 15 U/L (10-68); BILIRUBIN - TOTAL 0.18 mg/dL (0.2-1.3); CALCIUM 7.1 mg/dL (8.5-10.1); CARBON DIOXIDE 27.3 mmol/L (21.0-32.0); CHLORIDE - SERUM 106 mmol/L (98-107); GLUCOSE 116 mg/dL (74-106); MAGNESIUM - SERUM 2.1 mg/dL (1.8-2.4); POTASSIUM - SERUM 4.4 mmol/L (3.5-5.1); PROTEIN - SERUM 4.5 g/dL (6.4-8.2); SODIUM 139 mmol/L (136-145)
[2020-11-08 07:14] LABS: CALC OSMOLALITY 279 mosm/kg (275-300); CREATININE - SERUM 0.6 mg/dL (0.6-1.3); UREA NITROGEN 14 mg/dL (7-18); eGFR NON AFRICAN AMERICAN > 90 mL/min (90-120)
--- NOTE | 2020-11-08 07:51 | NUR ---
PATIENT RECIEVED 2 MG OF MORPHINE. ORDER CHANGED TO 4 MG EVERY 4 HOURS. ONLY RECIEVED 2 AT 0600. NGT REMOVED PER ORDER AND CLAMPED DAIGLE PER ORDER. IV INTACT AT THIS TIME. CALL LIGHT WITHIN REACH.
[2020-11-08 08:00] VITALS: BP 151/89
--- NOTE | 2020-11-08 10:37 | NUR ---
PATIENT WALKED 250FT WITH WALKER MOD ASSIT TO STAND VERY UNBALANCE WITH OUT WALKER
[2020-11-08 12:11] VITALS: BP 142/81
--- NOTE | 2020-11-08 14:47 | NUR ---
WALKED 500FT HAD TO STOP OVER 9 TIMES CGA WITH WALKER
[2020-11-08 15:32] VITALS: BP 138/77
--- NOTE | 2020-11-08 16:26 | NUR ---
PATIENT DAIGLE REMOVED AFTER BLADDER TRAINING FOR 6 HOURS. TOLERATED WITH SMALL AMOUNT OF PAIN. IV INTACT. NO COMPLAINTS. REFUSES FOR ME TO TAKE THE STATLOCK OFF BECAUSE HE SAYS IT HURTS TOO MUCH. TRIED REMOVING WITH ALCOHOL BUT WILL NOT COME OFF. FAMILY AT BEDSIDE. CALL LIGHT WITHIN REACH.
--- NOTE | 2020-11-08 18:46 | NUR ---
PATIENT STATED HE HAS NOT VOIDED, PASSED GAS, OR HAD A BM YET. TOLD HIM HE COULD STILL HAVE A SUPPOSITORY THAT WAS ORDERED FOR HIM THE AM. REFUSED. SAYS THAT THEY DONT WORK FOR HIM. IV INTACT. RECIEVED MORPHINE. CALL LIGHT WITHIN REACH.
[2020-11-08 20:00] VITALS: BP 158/89
[2020-11-09] VITALS: BP 149/83
[2020-11-09 04:00] VITALS: BP 153/86
[2020-11-09 05:51] LABS: BASOPHILS 0.2 % (0-2); EOSINOPHILS 1.5 % (0-7); HEMATOCRIT 35.8 % (42.0-54.0); LYMPHOCYTES 12.8 % (15-50); MCH 31.5 pg (26.0-34.0); MCHC 33.6 g/dL (31.0-37.0); MCV 93.9 fL (80.0-100.0); MEAN PLATELET VOLUME 7.6 fL (7.4-10.4); MONOCYTES 12.2 % (2-11); NEUTROPHILS 73.3 % (40-80); PLATELET COUNT 343 10x3/uL (130-400); RBC 3.81 10x6/uL (4.20-6.10); RDW 14.3 % (11.5-14.5); WBC 5.9 10x3/uL (4.8-10.8)
--- NOTE | 2020-11-09 06:07 | NUR ---
I have reviewed this patient and I concur with the Shift Assessment completed by the Licensed Practical Nurse today this shift.
[2020-11-09 06:27] LABS: ALBUMIN 1.8 g/dL (3.4-5.0); ALKALINE PHOSPHATASE 30 U/L (30-120); ALT (SGPT) 16 U/L (10-68); BILIRUBIN - TOTAL 0.29 mg/dL (0.2-1.3); CALC OSMOLALITY 272 mosm/kg (275-300); CALCIUM 7.6 mg/dL (8.5-10.1); CARBON DIOXIDE 25.6 mmol/L (21.0-32.0); CHLORIDE - SERUM 103 mmol/L (98-107); CREATININE - SERUM 0.6 mg/dL (0.6-1.3); GLUCOSE 89 mg/dL (74-106); MAGNESIUM - SERUM 2.1 mg/dL (1.8-2.4); POTASSIUM - SERUM 3.9 mmol/L (3.5-5.1); PROTEIN - SERUM 5.3 g/dL (6.4-8.2); SODIUM 137 mmol/L (136-145); UREA NITROGEN 12 mg/dL (7-18); eGFR NON AFRICAN AMERICAN > 90 mL/min (90-120)
--- NOTE | 2020-11-09 07:45 | NUR ---
ALERT AND ORIENTED. ASSESSMENT COMPLETE. WILL CHANGE ABD DRSG TODAY PER DR BLAS IN ROOM ORDER. PATIENT REQUESTED AND GIVEN PRN PAIN MEDICATION. EDUCATION PROVIDED TO PATIENT THAT HE NEEDS TO START TAKING PO PAIN MEDICATION AND WEAN OFF IV PAIN MEDICATION. VERBALIZED UNDERSTANDING. EDUCATION PROVIDED TO PATIENT ON NEED TO TAKE SUPPOSITORY. AGREED TO TAKE. BED LOW. CALL PHAN AND PERSONAL ITEMS IN REACH. WILL CONTINUE TO MONITOR.
[2020-11-09 08:45] VITALS: BP 150/91
--- NOTE | 2020-11-09 09:48 | NUR ---
DRSG CHANGED TO ABD PER ORDER. NO SIGNS INFECTION, REDNESS, DRAINAGE NOTED. ABD BINDER REPLACED. PATIENT STATES HAS NOT VOIDED SINCE DAIGLE REMOVED YESTERDAY AT 1630. BLADDER SCAN PERFOMED AND SHOWS 853 IN BLADDER. DAIGLE PLACED PER DENITRATOR OPERATOR ALEJANDRO ORDER AND 1250 ML OUT. DENITRATOR OPERATOR MADE AWARE THAT PRIOR TO FIRST CATHETER PLACEMENT, PATIENT WAS BEING IN AND OUT CATH EVERY TIME HE NEEDED TO VOID. DENITRATOR OPERATOR STATES TO FIND OUT IF THIS WAS THE CASE AT HOME AND REPORT BACK. STATES PATIENT WILL NEED DAIGLE AND BLADDER TRAINING AT THIS TIME.
--- NOTE | 2020-11-09 09:54 | NUR ---
PATIENT STATES "I HAVE TO GET UP IN THE MIDDLE OF THE NIGHT AND STIMULATE MYSELF TO PEE AT HOME AND IF YOU KEEP DOING ALL THIS SHIT TO ME I'LL NEVER BE ABLE TO GO HOME." PATIENT ALSO STATES "I CAN TAKE URINE THINNER, OR WHATEVER YOU WANT TO CALL IT. NONE OF THAT WORKS. IT HAS TO BE MY WAY OR THE HIGHWAY." REPORTED TO MILY ALLEN. STATES IS GOING TO ORDER FLOMAX, AND EXPLAIN TO PATIENT THAT MED TAKES MONTHS TO WORK. STATES HE CAN REFUSE MED IF HE WANTS TO BUT SHE IS GOING TO ORDER IT ANYWAY. ANOTHER 300ML DARK URINE EMPTIED FROM PATIENT'S DAIGLE BAG. DISCONNECTED FROM IV TO GET UP WITH PT. PATIENT REQUESTED TO PUT ON PAJAMAS. ASSISTED BY PT DARWIN. STATES "I'M SICK OF ALL THESE SUITS YOU KEEP PUTTING ME IN" IN REFERENCE TO EBONY. PATIENT UP WORKING WITH PT AT THIS TIME.
--- NOTE | 2020-11-09 10:16 | NUR ---
WALKED 500FT MIN ASSIT STOPPED OVER A DOZEN TIMES LOST BALANCE 4 TIMES OK TO WALK WITH STAFF WITH A WALKER
[2020-11-09 12:00] VITALS: BP 169/92
--- NOTE | 2020-11-09 14:00 | MORECARE ---
CASE MANAGEMENT DISCHARGE SUMMARY PATIENT: JACLYN DAMON UNIT: [id number] ADM DATE: 11/02/20 AGE: 60 : 60 SEX: M ROOM/BED: D.2226 AUTHOR: KELLY,DOC PHYSICIAN: REFERRING PHYSICIAN: ZAFAR ANDERS MD DATE OF SERVICE: 11/09/20 Case Management Discharge Planning Summary DCP REVIEW SUMMARY ANTICIPATED D/C DATE: EXPECTED LOS : CASE STATUS: DCP Initiated INITIAL REVIEW: 11/02/2020 INITIAL REVIEWER: Kenya Turner FINAL DISCHARGE DISPOSITION: : FINAL REVIEWER: FINAL REVIEW DATE: DCP Focus Questions & Answers DCP Screen QUESTION: ANSWER High Risk Factors: : None Walking limitation: Patient stated self rated walking limitation present? : No Age: : 45 - 64 Prior living environment: : Lives with others Disability ranking: : Grade 1: No significant disability DCP Evaluation QUESTION: ANSWER Patient's ability to cope with chronic illness : d. No chronic illness Would patient like to participate in any Care Coordination programs (if applicable): : Not applicable Mental health screen: : No mental health history DCP Re-evaluation QUESTION: ANSWER Would patient like to participate in any Care Coordination programs (if applicable): : Not applicable PATIENT: JACLYN DAMON ENCOUNTER: [id number] MEDICAL RECORD#: [id number] ADMISSION DATE: 11/02/2020 DISCHARGE DATE: ATTENDING MD: RJ COOK : AGE: 60 MARITAL STATUS: M DC PLAN ID: [id number] FACILITY: [facility] PRINTED ON: 11/09/20 14:00 CT All edits/amendments must be made on the electronic document DICTATION DATE: 11/09/20 1400 TOOL HARDENER: DM 11/09/20 1400 RPT#: [id number] DC DATE: STATUS: ADM IN [facility] [address] [place] [address] END OF REPORT
--- NOTE | 2020-11-09 14:13 | MORECARE ---
CASE MANAGEMENT DISCHARGE SUMMARY PATIENT: JACLYN DAMON UNIT: [id number] ADM DATE: 11/02/20 AGE: 60 : 60 SEX: M ROOM/BED: D.2226 AUTHOR: KELLY,DOC PHYSICIAN: REFERRING PHYSICIAN: ZAFAR ANDERS MD DATE OF SERVICE: 11/09/20 Case Management Discharge Planning Summary COMMENTS ENTERED DATE: 11/09/20 13:58 CT COMMENT TYPE: Discharge Planning REVIEWER: Kenya Turner CM met with patient and his at bedside after obtaining verbal consent. CM discussed availability / needs of home health, REHAB and medical equipment. states she is at home to care for him and will not need home health or rehab. He may need a walker at time of dc if he is still using one with therapy. If he needs one at time of dc cm will have one delivered to his room before he leaves. CM to follow and assist as needed. DCP REVIEW SUMMARY ANTICIPATED D/C DATE: EXPECTED LOS : CASE STATUS: DCP Initiated INITIAL REVIEW: 11/02/2020 INITIAL REVIEWER: Kenya Turner FINAL DISCHARGE DISPOSITION: : FINAL REVIEWER: FINAL REVIEW DATE: DCP Focus Questions & Answers DCP Screen QUESTION: ANSWER High Risk Factors: : None Walking limitation: Patient stated self rated walking limitation present? : No Age: : 45 - 64 Prior living environment: : Lives with others Disability ranking: : Grade 1: No significant disability DCP Evaluation QUESTION: ANSWER Patient's ability to cope with chronic illness : d. No chronic illness Would patient like to participate in any Care Coordination programs (if applicable): : Not applicable Mental health screen: : No mental health history DCP Re-evaluation QUESTION: ANSWER Would patient like to participate in any Care Coordination programs (if applicable): : Not applicable PATIENT: JACLYN DAMON ENCOUNTER: [id number] MEDICAL RECORD#: [id number] ADMISSION DATE: 11/02/2020 DISCHARGE DATE: ATTENDING MD: RJ COOK : AGE: 60 MARITAL STATUS: M DC PLAN ID: [id number] FACILITY: [facility] PRINTED ON: 11/09/20 14:13 CT All edits/amendments must be made on the electronic document DICTATION DATE: 11/09/20 141 COMPLIANCE COORDINATOR: HILDA 11/09/20 1413 RPT#: [id number] DC DATE: STATUS: ADM IN [facility] [address] [facility] [place] [address] END OF REPORT
--- NOTE | 2020-11-09 14:17 | NUR ---
Nutrition reassessment: Pt continues NPO x 7 days. Diet to advance per surgeon when passing gas; no BM or gas yet. Banana bag labs reviewed Wt: 187# Estiamted nutrition needs: [id number] (25-30 kcal/kg Actual BW) 85-102 g protein (1.0-1.2 gm/kg Actual BW) 3220-6755 ml fluid or per MD Nutrition diagnosis: Inadequate oral intake R/T recent surgery AEB pt continues NPO x 7 days today. Nutrition goals: - Nutrition support will start today if pt remains NPO - Meet est fluid needs - Stable dry wt Nutrition interventions: Strongly recommend starting ProcalAmine or TPN today due to pts NPO x 7 days. RDN will follow-up in 1 days.
[2020-11-09 19:58] VITALS: BP 183/84
[2020-11-10 04:00] VITALS: BP 155/88
[2020-11-10 06:16] LABS: BASOPHILS 0.2 % (0-2); EOSINOPHILS 1.4 % (0-7); HEMATOCRIT 39.4 % (42.0-54.0); HEMOGLOBIN 13.1 g/dL (13.5-17.5); LYMPHOCYTES 11.4 % (15-50); MCH 31.9 pg (26.0-34.0); MCHC 33.3 g/dL (31.0-37.0); MCV 95.8 fL (80.0-100.0); MEAN PLATELET VOLUME 7.5 fL (7.4-10.4); MONOCYTES 9.9 % (2-11); NEUTROPHILS 77.1 % (40-80); PLATELET COUNT 377 10x3/uL (130-400); RBC 4.12 10x6/uL (4.20-6.10); RDW 14.4 % (11.5-14.5); WBC 6.2 10x3/uL (4.8-10.8)
--- NOTE | 2020-11-10 06:30 | NUR ---
I have reviewed this patient and I concur with the Shift Assessment completed by the Licensed Practical Nurse today this shift.
[2020-11-10 06:55] LABS: ALBUMIN 2.1 g/dL (3.4-5.0); ALKALINE PHOSPHATASE 35 U/L (30-120); ALT (SGPT) 17 U/L (10-68); BILIRUBIN - TOTAL 0.23 mg/dL (0.2-1.3); CALC OSMOLALITY 270 mosm/kg (275-300); CARBON DIOXIDE 27.4 mmol/L (21.0-32.0); CHLORIDE - SERUM 102 mmol/L (98-107); CREATININE - SERUM 0.7 mg/dL (0.6-1.3); GLUCOSE 97 mg/dL (74-106); MAGNESIUM - SERUM 2.2 mg/dL (1.8-2.4); POTASSIUM - SERUM 3.6 mmol/L (3.5-5.1); PROTEIN - SERUM 5.8 g/dL (6.4-8.2); SODIUM 136 mmol/L (136-145); UREA NITROGEN 10 mg/dL (7-18); eGFR NON AFRICAN AMERICAN > 90 mL/min (90-120)
--- NOTE | 2020-11-10 08:10 | NUR ---
AWAKE AND ALERT. ORIENTED X3. LUNGS ARE CLEAR BILATERALLY, NO COUGH NOTED. USED IS AT THIS TIME. SKIN IS INTACT WITHOUT REDNESS EXCEPT INCISION TO MID ABDOMEN WHICH HAS A DRY INTACT DRESSING IN PLACE. BOWEL SOUNDS ARE HYPOACTIVE AT THIS TIME. IV TO LEFT FOREARM IS PATENT WITHOUT REDNESS AT INSERTION SITE. DAIGLE PATENT WITH CLEAR YELLOW URINE. DENIES NEEDS.
[2020-11-10] MEDS ORDERED: LINZESS290 MCG PO (08:16)
[2020-11-10] MEDS ORDERED: MAG 6464 MG PO (08:18)
[2020-11-10 08:57] VITALS: BP 141/87
--- NOTE | 2020-11-10 10:07 | NUR ---
WALKED 500 FT CGA JUST NEEDS SOME HELP GETTING TO SOB AND TO STAND SAFE TO [facility] WITH STAFF
--- NOTE | 2020-11-10 10:43 | NUR ---
TOOK AM MEDS WITHOUT DIFFICULTY. REQUESTED AND GIVEN ONE HYDROCODONE PO FOR C/O ABDOMINAL PAIN LEVEL 8. WILL MONITOR.
--- NOTE | 2020-11-10 12:15 | NUR ---
TOOK MINERAL OIL BUT REFUSED DULCOLAX SINCE HE HAD ONE EARLIER.
[2020-11-10 12:22] VITALS: BP 132/81
--- NOTE | 2020-11-10 14:02 | NUR ---
WALKED 750 FEET NEEDS HELP GETTING TO SOB CGA WALKING
--- NOTE | 2020-11-10 14:22 | NUR ---
Nutrition follow-up: Pt discussed in IDT team meeting NPO x 7 days; diet advanced to regular today Labs reviewed RDN will follow-up on diet tolerance in 2-3 days.
--- NOTE | 2020-11-10 14:35 | NUR ---
REQUESTED AND GIVEN ONE HYDROCODONE PO FOR C/O ABDOMINAL PAIN LEVEL 10. WILL MONITOR. DAIGLE D/C WITH TIP INTACT WITHOUT DIFFICULTY. GARETH D/C WITHOUT DIFFICULTY, PATIENT C/O INTENSE PAIN TO ABDOMEN AFTER PULLED. WILL MONITOR.
[2020-11-10 17:08] VITALS: BP 166/85
--- NOTE | 2020-11-10 18:45 | NUR ---
RESTING QUIETLY IN BED. REFUSED SUPPER TRAY. STATED HE ATE TO MUCH LUNCH AND HE DIDN'T WANT TO DO THAT AGAIN. WILL MONITOR. DENIES NEEDS. NO URINE AT THIS TIME.
[2020-11-10 20:00] VITALS: BP 134/84
[2020-11-11 03:24] VITALS: BP 135/74
--- NOTE | 2020-11-11 05:10 | NUR ---
I have reviewed this patient and I concur with the Shift Assessment completed by the Licensed Practical Nurse today this shift.
[2020-11-11 06:21] LABS: BASOPHILS 0.1 % (0-2); EOSINOPHILS 0.2 % (0-7); HEMATOCRIT 36.6 % (42.0-54.0); HEMOGLOBIN 12.3 g/dL (13.5-17.5); LYMPHOCYTES 4.9 % (15-50); MCH 31.4 pg (26.0-34.0); MCHC 33.5 g/dL (31.0-37.0); MEAN PLATELET VOLUME 7.2 fL (7.4-10.4); MONOCYTES 5.4 % (2-11); NEUTROPHILS 89.4 % (40-80); PLATELET COUNT 447 10x3/uL (130-400); RBC 3.91 10x6/uL (4.20-6.10); RDW 14.6 % (11.5-14.5)
[2020-11-11 06:22] LABS: MCV 93.7 fL (80.0-100.0); WBC 11.3 10x3/uL (4.8-10.8)
[2020-11-11 06:52] LABS: ALKALINE PHOSPHATASE 32 U/L (30-120); ALT (SGPT) 16 U/L (10-68); BILIRUBIN - TOTAL 0.24 mg/dL (0.2-1.3); CALC OSMOLALITY 274 mosm/kg (275-300); CALCIUM 7.8 mg/dL (8.5-10.1); CARBON DIOXIDE 27.6 mmol/L (21.0-32.0); CHLORIDE - SERUM 103 mmol/L (98-107); CREATININE - SERUM 0.7 mg/dL (0.6-1.3); GLUCOSE 129 mg/dL (74-106); MAGNESIUM - SERUM 2.2 mg/dL (1.8-2.4); POTASSIUM - SERUM 4.1 mmol/L (3.5-5.1); PROTEIN - SERUM 5.3 g/dL (6.4-8.2); SODIUM 137 mmol/L (136-145); UREA NITROGEN 11 mg/dL (7-18); eGFR NON AFRICAN AMERICAN > 90 mL/min (90-120)
--- NOTE | 2020-11-11 07:47 | NUR ---
AWAKE AND ALERT. ORIENTED X3. C/O INTENSE ABDOMINAL PAIN THIS AM. REQUESTED AND GIVEN ONE HYDROCODONE WITH 30MG TORADOL SLOW IVP FOR PAIN LEVEL 10. WILL MONITOR. LUNGS ARE CLEAR BILATERALLY, NO COUGH NOTED. SKIN IS INTACT WITHOUT REDNESS EXCEPT INCISION TO MID ABDOMEN WHICH HAS A DRY INTACT DRESSING IN PLACE. IV TO LEFT FOREARM IS PATENT WITHOUT REDNESS AT INSERTION SITE. DENIES NEEDS. DAIGLE UNCLAMPED FOR 15 MINUTES WITH 50CC CLOUDY YELLOW URINE RETURNED.
--- NOTE | 2020-11-11 08:45 | NUR ---
RESTING QUIETLY WITH EYES CLOSED. DENIES NEEDS.
--- NOTE | 2020-11-11 10:00 | NUR ---
UNCLAMPED DAIGLE PER SELF. UNKNOWN AMOUNT OF UOP. RECLAMPED. WILL MONITOR.
[2020-11-11 10:13] VITALS: BP 132/83
--- NOTE | 2020-11-11 12:30 | NUR ---
LUNCH SERVED IN ROOM. NOT EATING AT THIS TIME. WILL MONITOR.
--- NOTE | 2020-11-11 12:46 | NUR ---
REQUESTED AND GIVEN 30MG TORADOL SLOW IVP WITH ONE HYDROCODONE PO FOR C/O ABDOMINAL PAIN LEVEL 10. WILL MONITOR. AT BEDSIDE.
[2020-11-11 13:10] VITALS: BP 128/77
--- NOTE | 2020-11-11 16:23 | NUR ---
RESTING QUIETLY IN BED. AT BEDSIDE STILL. DENIES NEEDS.
[2020-11-11 16:57] VITALS: BP 114/74
--- NOTE | 2020-11-11 17:04 | NUR ---
REQUESTED AND GIVEN ONE HYDROCODONE PO FOR C/O ABDOMINAL PAIN LEVEL 8. WILL MONITOR. ATE LUNCH FOR SUPPER AND HAD SUPPER TRAY PUT IN FRIDGE FOR LATER. DENIES NEEDS. NO CHANGES NOTED.
[2020-11-11 20:00] VITALS: BP 120/81
[2020-11-12] VITALS: BP 144/79
[2020-11-12 04:00] VITALS: BP 153/61
--- NOTE | 2020-11-12 06:17 | NUR ---
I have reviewed this patient and I concur with the Shift Assessment completed by the Licensed Practical Nurse today this shift.
[2020-11-12 07:10] LABS: HEMATOCRIT 34.3 % (42.0-54.0); HEMOGLOBIN 11.5 g/dL (13.5-17.5); MCH 31.8 pg (26.0-34.0); MCHC 33.6 g/dL (31.0-37.0); MCV 94.5 fL (80.0-100.0); MEAN PLATELET VOLUME 7.3 fL (7.4-10.4); PLATELET COUNT 444 10x3/uL (130-400); RBC 3.63 10x6/uL (4.20-6.10); RDW 14.8 % (11.5-14.5); WBC 8.7 10x3/uL (4.8-10.8)
[2020-11-12 07:12] LABS: ALBUMIN 1.9 g/dL (3.4-5.0); ALKALINE PHOSPHATASE 32 U/L (30-120); ALT (SGPT) 19 U/L (10-68); BILIRUBIN - TOTAL 0.18 mg/dL (0.2-1.3); CALCIUM 7.3 mg/dL (8.5-10.1); CARBON DIOXIDE 28.6 mmol/L (21.0-32.0); CHLORIDE - SERUM 105 mmol/L (98-107); CREATININE - SERUM 0.8 mg/dL (0.6-1.3); GLUCOSE 93 mg/dL (74-106); MAGNESIUM - SERUM 2.4 mg/dL (1.8-2.4); POTASSIUM - SERUM 3.9 mmol/L (3.5-5.1); PROTEIN - SERUM 4.9 g/dL (6.4-8.2); SODIUM 138 mmol/L (136-145); eGFR NON AFRICAN AMERICAN > 90 mL/min (90-120)
[2020-11-12 07:14] LABS: CALC OSMOLALITY 276 mosm/kg (275-300); UREA NITROGEN 14 mg/dL (7-18)
--- NOTE | 2020-11-12 07:50 | NUR ---
PT SITTING UP IN BED WATCHING TV. PT REPORTS PAIN 3/10 AT THIS TIME. RESP EVEN AND UNLABORED. IV TO LEFT FOREARM WITH D5 1/2 W/ 20KCL @ 50ML/HR INFUSING VIA PUMP. SITE WITHOUT REDNESS OR EDEMA. MIDLINE ABD INCISION WITH DRESSING INTACT, C/D/I, WITH ABD BINDER IN PLACE. F/C PATENT TO GRAVITY, CLAMPED AT THIS TIME FOR BLADDER TRAINING. PT VOICES HAVING PERIODS OF SENSATION TO VOID AND WILL UNCLAMP F/C TO ALLOW BLADDER DRAINING. PT DENIES FURTHER NEEDS AT THIS TIME. CL WITHIN REACH. ENCOURAGED TO CALL WITH NEEDS. CONTINUE POC
[2020-11-12 08:33] LABS: LYMPHOCYTES 18 % (15-50); MONOCYTES 1 % (2-11); NEUTROPHILS 81 % (40-80)
[2020-11-12 08:34] LABS: PLATELET ESTIMATE INCREASED
[2020-11-12 09:51] VITALS: BP 134/83
[2020-11-12 12:51] VITALS: BP 140/93
--- NOTE | 2020-11-12 12:51 | NUR ---
Nutrition follow-up: Diet has advanced to regular PO intake ~50-75% of some meals Pt continues with some N/V / per nurse labs reviewed WT: 187# Will continue to provide food choices and honor food preferences. Will offer nutritional supplements. RDN will follow-up on continued progress toward nutrition goals in 4-5 days.
[2020-11-12 17:03] VITALS: BP 142/80
[2020-11-12 20:45] VITALS: BP 139/89
--- NOTE | 2020-11-13 03:54 | NUR ---
I have reviewed this patient and I concur with the Shift Assessment completed by the Licensed Practical Nurse today this shift.
--- NOTE | 2020-11-13 03:58 | NUR ---
I have reviewed this patient and I concur with the Shift Assessment completed by the Licensed Practical Nurse today this shift.
[2020-11-13 06:42] LABS: BASOPHILS 0.3 % (0-2); EOSINOPHILS 1.1 % (0-7); HEMATOCRIT 36.4 % (42.0-54.0); HEMOGLOBIN 12.2 g/dL (13.5-17.5); LYMPHOCYTES 11.6 % (15-50); MCH 31.6 pg (26.0-34.0); MCHC 33.5 g/dL (31.0-37.0); MCV 94.1 fL (80.0-100.0); MEAN PLATELET VOLUME 7.5 fL (7.4-10.4); MONOCYTES 8.3 % (2-11); NEUTROPHILS 78.7 % (40-80); PLATELET COUNT 495 10x3/uL (130-400); RBC 3.87 10x6/uL (4.20-6.10); RDW 14.7 % (11.5-14.5); WBC 10.5 10x3/uL (4.8-10.8)
[2020-11-13 07:01] LABS: ALKALINE PHOSPHATASE 37 U/L (30-120); ALT (SGPT) 35 U/L (10-68); BILIRUBIN - TOTAL 0.24 mg/dL (0.2-1.3); CALC OSMOLALITY 276 mosm/kg (275-300); CALCIUM 7.8 mg/dL (8.5-10.1); CARBON DIOXIDE 27.4 mmol/L (21.0-32.0); CHLORIDE - SERUM 105 mmol/L (98-107); CREATININE - SERUM 0.7 mg/dL (0.6-1.3); GLUCOSE 93 mg/dL (74-106); PROTEIN - SERUM 5.3 g/dL (6.4-8.2); SODIUM 139 mmol/L (136-145); UREA NITROGEN 9 mg/dL (7-18); eGFR NON AFRICAN AMERICAN > 90 mL/min (90-120)
[2020-11-13 07:02] LABS: ALBUMIN 2.6 g/dL (3.4-5.0)
--- NOTE | 2020-11-13 07:30 | NUR ---
PT TALKING ABOUT LEAVING HERE TODAY. WHETHER OR NOT HE GETS "DISCHARGED" OR NOT. VOICES UNDERSTANDING ABOUT LEAVING AMA THAT INSURANCE WILL NOT PAY FOR IT AND THAT WE CAN TRY AND GET AN APPROPRIATE DISCHARGE. HOWEVER, HE UNDERSTANDS THAT HE MIGHT NOT MEET DISCHARGE CRITERIA. PT ALSO WANTS HIS DAIGLE REMOVED. THAT "HE CAN'T DO THAT PART HIMSELF." I ASKED IF WE COULD WAIT AWHILE TO SEE ABOUT A PROPER DISCHARGE BECAUSE HE WILL NEED TO ENSURE HE CAN URINATE. CL IN REACH. RANJAN TOVAR ON. INCISION CDI. TM
[2020-11-13 09:14] VITALS: BP 148/83
--- NOTE | 2020-11-13 09:40 | NUR ---
PT UP WALKING THE HALLS. I LET HIM KNOW THAT I HAVE HIS MEDICATIONS. HE ASKED WHICH ONES. I WENT THROUGH THE LIST. HE STATED THAT HE DID NOT WANT FLOMAX OR PROSCAR SINCE THEY HAD NO RESULTS FOR HIM AND ASSISTING HIS URINARY NEEDS. REFUSED THE DULCOLAX SUPPOSITORY THAT WOULD HELP WITH HIS ILLEUS, THE LOVENOX SHOT TO PREVENT BLOOD CLOTS, THE PROTONIX AND FLORAJEN TO HELP HIS STOMACH HEALTH. WELL THE TORADOL SINCE HE "IS GOING HOME." WANTS TO HOLD OFF ON THE MVI TO REPLACE ELECTORLYTES WELL. WILL LET ME KNOW WHEN HE NEEDS ME.
--- NOTE | 2020-11-13 10:43 | NUR ---
DR GRACE AWARE THAT PT WOULD LIKE TO DISCHARGE OR LEAVE AMA. DR GRACE VOICES UNDERSTANDING AND THAT WE WILL SEE IF HE MEETS CRITERIA.
[2020-11-13] MEDS ORDERED: HYDROCODON-ACE1 EAC7 PO (10:50)
[2020-11-13] MEDS ORDERED: LEVAQUIN750 MG PO (10:54)
[2020-11-13] MEDS ORDERED: FLAGYL500 MG PO (10:54)
[2020-11-13] MEDS ORDERED: FLOMAX0.4 MG PO (11:52)
[2020-11-13] MEDS ORDERED: MULTI-DAY VITAM1 TAB PO (11:52)
[2020-11-13] MEDS ORDERED: PROSCAR5 MG PO (11:52)
[2020-11-13 13:37] VITALS: BP 139/79
--- NOTE | 2020-11-13 13:58 | NUR ---
REMOVED DAIGLE WITH 8 ML FROM BALLOON. IV THERAPY ALREADY REMOVED. ISRAEL AT BEDSIDE. VERBALIZED UNDERSTANDING OF DISCHARGE INSTRUCTIONS. PT VERBALIZED CERTAINTY OF PICKING UP ABX FROM PHARMACY ALTHOUGH NOT THE REST. WHEELED OUT BY ME THROUGH ER.
--- NOTE | 2020-11-13 19:24 | MORECARE ---
CASE MANAGEMENT DISCHARGE SUMMARY PATIENT: JACLYN DAMON UNIT: [id number] ADM DATE: 11/02/20 AGE: 60 : 60 SEX: M ROOM/BED: D.2226 AUTHOR: KELLY,DOC PHYSICIAN: REFERRING PHYSICIAN: ZAFAR ANDERS MD DATE OF SERVICE: 11/13/20 Case Management Discharge Planning Summary COMMENTS ENTERED DATE: 11/09/20 13:58 CT COMMENT TYPE: Discharge Planning REVIEWER: Kenya Turner CM met with patient and his at bedside after obtaining verbal consent. CM discussed availability / needs of home health, REHAB and medical equipment. states she is at home to care for him and will not need home health or rehab. He may need a walker at time of dc if he is still using one with therapy. If he needs one at time of dc cm will have one delivered to his room before he leaves. CM to follow and assist as needed. DCP REVIEW SUMMARY ANTICIPATED D/C DATE: 11/13/2020 EXPECTED LOS : 11 CASE STATUS: DCP Initiated INITIAL REVIEW: 11/02/2020 INITIAL REVIEWER: Kenya Turner FINAL DISCHARGE DISPOSITION: : FINAL REVIEWER: FINAL REVIEW DATE: DCP Focus Questions & Answers DCP Screen QUESTION: ANSWER High Risk Factors: : None Walking limitation: Patient stated self rated walking limitation present? : No Age: : 45 - 64 Prior living environment: : Lives with others Disability ranking: : Grade 1: No significant disability DCP Evaluation QUESTION: ANSWER Patient's ability to cope with chronic illness : d. No chronic illness Would patient like to participate in any Care Coordination programs (if applicable): : Not applicable Mental health screen: : No mental health history DCP Re-evaluation QUESTION: ANSWER Would patient like to participate in any Care Coordination programs (if applicable): : Not applicable PATIENT: JACLYN DAMON ENCOUNTER: [id number] MEDICAL RECORD#: [id number] ADMISSION DATE: 11/02/2020 DISCHARGE DATE: 11/13/2020 ATTENDING MD: RJ COOK : AGE: 60 MARITAL STATUS: M DC PLAN ID: [id number] FACILITY: [facility] PRINTED ON: 11/13/20 19:24 CT All edits/amendments must be made on the electronic document DICTATION DATE: 11/13/201923 WHARF TENDER HELPER: HILDA 11/13/201923 RPT#: [id number] DC DATE:11/13/20 STATUS: DIS IN [facility] [address] [place] [address] END OF REPORT
--- NOTE | 2020-11-15 13:58 | MORECARE ---
CASE MANAGEMENT DISCHARGE SUMMARY PATIENT: JACLYN DAMON UNIT: [id number] ADM DATE: 11/02/20 AGE: 60 : 60 SEX: M ROOM/BED: D.2226 AUTHOR: KELLY,DOC PHYSICIAN: REFERRING PHYSICIAN: ZAFAR ANDERS MD DATE OF SERVICE: 11/15/20 Case Management Discharge Planning Summary COMMENTS ENTERED DATE: 11/09/20 13:58 CT COMMENT TYPE: Discharge Planning REVIEWER: Kenya Turner CM met with patient and his at bedside after obtaining verbal consent. CM discussed availability / needs of home health, REHAB and medical equipment. states she is at home to care for him and will not need home health or rehab. He may need a walker at time of dc if he is still using one with therapy. If he needs one at time of dc cm will have one delivered to his room before he leaves. CM to follow and assist as needed. DCP REVIEW SUMMARY ANTICIPATED D/C DATE: 11/13/2020 EXPECTED LOS : 11 CASE STATUS: DCP Initiated INITIAL REVIEW: 11/02/2020 INITIAL REVIEWER: Kenya Turner FINAL DISCHARGE DISPOSITION: : FINAL REVIEWER: FINAL REVIEW DATE: DCP Focus Questions & Answers DCP Screen QUESTION: ANSWER High Risk Factors: : None Walking limitation: Patient stated self rated walking limitation present? : No Age: : 45 - 64 Prior living environment: : Lives with others Disability ranking: : Grade 1: No significant disability DCP Evaluation QUESTION: ANSWER Patient's ability to cope with chronic illness : d. No chronic illness Would patient like to participate in any Care Coordination programs (if applicable): : Not applicable Mental health screen: : No mental health history DCP Re-evaluation QUESTION: ANSWER Would patient like to participate in any Care Coordination programs (if applicable): : Not applicable PATIENT: JACLYN DAMON ENCOUNTER: [id number] MEDICAL RECORD#: [id number] ADMISSION DATE: 11/02/2020 DISCHARGE DATE: 11/13/2020 ATTENDING MD: RJ COOK : AGE: 60 MARITAL STATUS: M DC PLAN ID: [id number] FACILITY: [facility] PRINTED ON: 11/15/20 13:58 CT All edits/amendments must be made on the electronic document DICTATION DATE: 11/15/20 1358 AUTOMOBILE MECHANIC RADIATOR: HILDA 11/15/20 1358 RPT#: [id number] DC DATE:11/13/20 STATUS: DIS IN [facility] [address] [place] [address] END OF REPORT
== END 2020-11-13 14:02 | disposition home or self-care (01) | DRG 392 ==
LOC: D.ER 18:00 → D.MS 22:03
PROVIDERS: Emergency Medicine; Family Medicine; Surgery; ADMIT Emergency Medicine; ATTEND Emergency Medicine
PROC: 0DJ08ZZ Inspection of Upper Intestinal Tract, Via Natural or Artificial Opening Endoscopic (ICD-10-PCS; 2020-11-04)
PROC: 0DBK8ZX Excision of Ascending Colon, Via Natural or Artificial Opening Endoscopic, Diagnostic (ICD-10-PCS; principal; 2020-11-04 11:00)
DX: K44.0 Diaphragmatic hernia with obstruction, without gangrene (principal); E87.1 Hypo-osmolality and hyponatremia; F17.203 Nicotine dependence unspecified, with withdrawal; K80.20 Calculus of gallbladder without cholecystitis without obstruction; E03.9 Hypothyroidism, unspecified; I10 Essential (primary) hypertension; F41.8 Other specified anxiety disorders; G40.909 Epilepsy, unspecified, not intractable, without status epilepticus; G62.9 Polyneuropathy, unspecified; M47.9 Spondylosis, unspecified; K44.9 Diaphragmatic hernia without obstruction or gangrene; K58.1 Irritable bowel syndrome with constipation; Z72.89 Other problems related to lifestyle; R29.2 Abnormal reflex; K57.90 Diverticulosis of intestine, part unspecified, without perforation or abscess without bleeding

== ENCOUNTER → 2020-11-18 13:24 | Outpatient (CLI) | payer MEDICARE ==
[2020-11-03 15:01] VITALS: BMI 24.6
[~2020-11-18 13:24] MED LIST changes: +FLAGYL500 MG PO; +FLOMAX0.4 MG PO; +HYDROCODON-ACE1 EAC7 PO; +LEVAQUIN750 MG PO; +LINZESS290 MCG PO; +MAG 6464 MG PO; +MULTI-DAY VITAM1 TAB PO; +PROSCAR5 MG PO
[2020-11-18 13:50] LABS: BASOPHILS 1.1 % (0-2); EOSINOPHILS 1.2 % (0-7); HEMATOCRIT 37.3 % (42.0-54.0); HEMOGLOBIN 12.5 g/dL (13.5-17.5); LYMPHOCYTES 13.6 % (15-50); MCH 31.7 pg (26.0-34.0); MCHC 33.5 g/dL (31.0-37.0); MCV 94.8 fL (80.0-100.0); MEAN PLATELET VOLUME 7.5 fL (7.4-10.4); MONOCYTES 9.8 % (2-11); NEUTROPHILS 74.3 % (40-80); RBC 3.94 10x6/uL (4.20-6.10); RDW 15.1 % (11.5-14.5); WBC 9.7 10x3/uL (4.8-10.8)
[2020-11-18 13:58] LABS: PLATELET COUNT 646 10x3/uL (130-400)
== END | disposition home or self-care (01) ==
LOC: D.LAB 13:24
PROVIDERS: ATTEND Surgery
DX: G89.18 Other acute postprocedural pain (principal)

== ENCOUNTER → 2020-11-24 13:48 | Outpatient (CLI) | payer MEDICARE ==
[2020-11-03 15:01] VITALS: BMI 24.6
== END | disposition home or self-care (01) ==
LOC: D.CT 13:00
PROVIDERS: ATTEND Surgery
DX: K55.9 Vascular disorder of intestine, unspecified (principal)